=== PATIENT | male | born 1980 | race Caucasian/White ===

== ENCOUNTER 2023-07-25 17:47 | Emergency (ER) | payer BC, SELFPAY ==
[2023-07-25 17:58] VITALS: BP 115/87
--- NOTE | 2023-07-25 19:02 | ED.GENMED ---
History of Present Illness
General
Chief Complaint: Back Pain
Source: patient
Exam Limitations: none
Time Seen by Provider: 07/25/23 18:48
Nursing documentation reviewed up to this point in time: agreed with
Travel History
Have you had any contact with someone who has COVID-19?: No
Do you have any symptoms of coronavirus? Fever > 100 degrees, chills, cough, shortness of breath, sore throat, loss of taste or smell, muscle aches, or headache?: No
History of Present Illness
History of Present Illness:
42-year-old male with history of lower back pain for a few years, followed by [facility], had an MRI on 06/03 and has a follow-up appointment with [facility] in 3 days to review the MRI results. He states he was told he has bulging disc at
L4-5.
10 days ago at his 4-year-old daughter's daycare he was lifting her up and throwing her up into the air and catching her when he suddenly felt a sharp pain in his left hip radiating down to his foot and his leg buckled and he faltered but did not
fall. His typical sciatic pain in the left leg has been worse since that incident. He has had trouble sleeping the past 3 nights due to this pain.
He finished a 10-day prednisone taper this morning. He states it helped his pain significantly but 2 days ago he carried his 4-year-old daughter a lot during a hiking trip and the pain has been getting much worse.
He denies saddle anesthesia, loss of bowel or bladder control or weakness in the legs.
Past History
Past History
ED Past Medical History: None
ED Past Surgical History: Other (Hernia repair)
Social History
Tobacco: Non-smoker
Alcohol: None
Living: with family
Employment: Employed (Desk work)
Review of Systems
Review of Systems
Allergies reviewed?: Yes
All Other Systems: ROS reviewed and negative except as documented in HPI and ROS
Constitutional: Denies fever
: Denies incontinence or difficulty voiding
Musculoskeletal: Reports back pain
Skin: Reports no symptoms
Neurological: Reports other (Back pain radiating down left leg)
Phy Exam
Physical Exam
Physical Exam:
GENERAL: No acute distress. A&Ox3.
CONSTITUTIONAL: Afebrile.
MUSCULOSKELETAL: Moves with ease. Well perfused. Tender to palpate left buttock and outer thigh. Full range of motion of left lower extremity.
SKIN: Warm, dry, pink
PSYCH: Normal mood and affect. Well kept, interactive and appropriate
NEUROLOGIC: Awake, alert and oriented. No focal neurological deficits. Strength equal throughout ambulates well with steady gait
Course
Orders/Labs/Results
Orders:
Orders
07/25/23 18:59
Dexamethasone [Decadron] 10 mg PO NOW STA
07/25/23 19:00
Ketorolac [Toradol] 15 mg IM NOW STA
Vital Signs
Initial and Last Documented VS:
Initial Vital Signs
Temp Pulse Resp BP Pulse Ox
97.9 F 83 17 115/87 99
07/25/23 17:58 07/25/23 17:58 07/25/23 17:58 07/25/23 17:58 07/25/23 17:58
Last Documented Vital Signs
Temp Pulse Resp BP Pulse Ox
97.9 F 83 17 115/87 99
07/25/23 17:58 07/25/23 17:58 07/25/23 17:58 07/25/23 17:58 07/25/23 17:58
MDM/Problems Addressed
Differential Diagnosis Includes:
Exacerbation of low back pain, exacerbation of left sciatic
MDM/Problems Addressed:
42-year-old male with history of lower back pain for a few years, followed by [facility], had an MRI on 06/03 and has a follow-up appointment with [facility] in 3 days to review the MRI results. He states he was told he has bulging disc at
L4-5.
10 days ago at his 4-year-old daughter's daycare he was lifting her up and throwing her up into the air and catching her when he suddenly felt a sharp pain in his left hip radiating down to his foot and his leg buckled and he faltered but did not
fall. His typical sciatic pain in the left leg has been worse since that incident. He has had trouble sleeping the past 3 nights due to this pain.
He finished a 10-day prednisone taper this morning. He states it helped his pain significantly but 2 days ago he carried his 4-year-old daughter a lot during a hiking trip and the pain has been getting much worse.
He denies saddle anesthesia, loss of bowel or bladder control or weakness in the legs.
NAD
7:05 PM
No cauda equina, patient does not appear uncomfortable
Plan: 1 dose Decadron here now, 1 dose Toradol 15 mg IM here now.
Since his prednisone taper worked for him, and he re aggravated the area, I will give him a 4-day regimen of prednisone 40 mg to get him through till he sees his [facility] doctor in 3 days.
He is happy with this plan.
*Critical Care Note
Total Time (30-74mins, 75-104mins- exclusive of procedures): Not Applicable
ED Attending Note
-
Portions of this chart may have been created with voice recognition software.� Occasional wrong word or��sound alike� substitutions may have occurred due to the inherent limitations of voice recognition software.
Discharge Plan
Departure
Patient Disposition: Home (Routine Discharge)
Date of Disposition: 07/25/23
Time of Disposition: 18:59
Patient with high blood pressure during this ER visit?: No
Condition: Good
Discharge Problem:
Left-sided low back pain with left-sided sciatica
Instructions: Sciatica (DC)
Prescriptions:
New
prednisone 20 mg tablet
40 mg PO DAILY Qty: 8 0RF
Referrals:
Your, [facility] [Other] - Keep scheduled appt
Stephane Erickson, DO [Family Provider] -
Activity Restrictions/Additional Instructions:
As we discussed, take ibuprofen 600 mg about 15 minutes before bedtime to see if it helps to get through the night
I sent a prescription to your pharmacy for prednisone 40 mg a day for the next 4 days. Start tomorrow as you were given a dose of Decadron 10 mg here today
Keep your appointment with [facility] on Monday
Interventions
Interventions:
*Risk Screen - Suicide Last Done: 07/25/23 17:58
*General Assessment Last Done: 07/25/23 17:58
*Neglect/Abuse Screening Last Done: 07/25/23 17:58
*ED COVID-19 Vaccine History Last Done: 07/25/23 17:58
*Nursing Disposition Last Done: 07/25/23 19:33
ED-Musculoskeletal Assessment Last Done: 07/25/23 19:32
Discharge Date and Time
Discharge Date/Time: 07/25/23 19:34
Print Language: PANAMANIAN
[2023-07-25] MEDS: DECADRON 10 MG PO (19:16)
[2023-07-25] MEDS: TORADOL 15 MG IM (19:16)
== END 2023-07-25 19:34 | disposition home or self-care (01) ==
LOC: EMR 17:47
PROVIDERS: EMERGENCY PHYSICIAN Emergency Medicine; FAMILY PHYSICIAN Family Medicine
DX: M54.42 Lumbago with sciatica, left side (principal); M25.552 Pain in left hip
CPT/HCPCS: 99284; 96372